=== PATIENT | female | born 1960 | race Caucasian/White ===

== ENCOUNTER 2024-01-15 20:49 | Emergency (ER) | payer OTHER, SELFPAY ==
[2024-01-15 20:51] VITALS: BP 155/102; PULSE 87; RESP 20; TEMP 36.7; O2SAT 99
[2024-01-15 21:11] VITALS: RESP 18
--- NOTE | 2024-01-15 21:18 | ED.GENADUL_ITS ---
Discharge Plan Disposition Patient Disposition: Home Condition: Stable Discharge Details Clinical Impression: Diplopia, Sinus headache, Allergic conjunctivitis Primary Care Provider: Unknown,Unknown ED Provider: Gisela Garcia Home Meds and New Rx's Prescriptions: No Action olopatadine 0.1 % drops 1 drp ophthalmic (eye) ONCE montelukast [Singulair] 10 mg tablet 10 mg PO DAILY oxycodone 7.5 mg PO TID fluticasone propion-salmeterol 230-21 mcg/actuation HFA aerosol inhaler 2 inh inhalation BID Airsupra 90-80 mcg/actuation HFA aerosol inhaler 2 inh inhalation DAILY PRN Discharge Instructions Instructions: Double Vision (DC), Headache, Adult ED, Seasonal Allergies ED Additional Instructions: Please keep your eye appointment as scheduled tomorrow. CT shows no evidence of continued infection in your sinuses or sinus abscess or fluid collection. I do suspect that this may be related to your seasonal allergies and recent sinus infection. CT shows no acute intracranial hemorrhage or fluid collection. Use the eyedrops as directed every 4 hours while awake. Return to the ER for any worsening headache, worsening double vision, weakness, dizziness, confusion, slurred speech, chest pain, or any concerns. Thank you for allowing us to care for you today. No evidence of urinary tract infection at this time. Referrals: Primary Care Provider [Outside] - 1 week Discharge Data Discharge Date/Time-TO BE ENTERED AT DEPARTURE: 01/15/24 23:42 HPI General Mode of arrival: ambulatory . Date/Time Provider Initiated Documentation: 01/15/24 21:02 . Limitations to Documentation: no limitations . Information obtained by: patient, family, RN notes reviewed and old records reviewed . HPI Narrative: 63-year-old female presents to the ER with a chief complaint of double vision that started intermittently prior to arrival. She is visiting from [facility], she reports that she recently was treated for sinusitis with 14 days of Au gmentin and finished her last dose this morning. She is continuing to have sinus pressure headache, discharge from her eyes, ear pain. She denies any chest pain abdominal pain nausea vomiting diarrhea she does endorse chills. She is hypertensive upon arrival has not taken blood pressure medication for the last 2 years. She does have a past medical history of gastric bypass surgery, prediabetes, POTS syndrome, severe seasonal allergies. She does have an appointment with local eye doctor tomorrow. She denies any weakness, numbness tingling her extremities no facial droop noted she is alert and oriented x 4, no significant focal neurodeficits noted on initial presentation. She does appear anxious with pressured speech. Related Data Home Medications Medication Instructions Recorded Confirmed albuterol 90 mcg-budesonide 80 2 inh inhalation DAILY PRN 01/15/24 01/15/24 mcg/actuation HFA aerosol inhaler (Airsupra) fluticasone propionate 230 2 inh inhalation BID 01/15/24 01/15/24 mcg-salmeterol 21 mcg/actuation HFA inhaler montelukast 10 mg tablet 10 mg PO DAILY 01/15/24 01/15/24 (Singulair) olopatadine 0.1 % eye drops 1 drp ophthalmic (eye) ONCE 01/15/24 01/15/24 oxycodone 7.5 mg PO TID 01/15/24 01/15/24 Allergies Allergy/AdvReac Type Severity Reaction Status Date / Time contrast dye Allergy Severe Anaphylaxis Uncoded 01/15/24 21:32 environmental Allergy Mild Other (See Uncoded 01/15/24 20:58 Comment) General Stated Complaint: GenMedical BHASKAR: 3 Review of Systems All systems reviewed & are unremarkable except as noted in HPI and below Constitutional Constitutional: Reports as per HPI, Denies frequent falls, Reports headache(s) and Denies weakness Eyes Eyes: Reports as per HPI, Reports blurry vision, Reports diplopia, Reports eye discharge, Reports irritation, Reports itchy eyes and Denies loss of vision ENT Ears, Nose, Mouth, and Throat: Reports as per HPI, Reports otalgia, Reports facial pain, Reports headache(s), Denies neck pain, Reports nose pain, Reports sinus pain and Reports sinus pressure Cardiovascular Cardiovascular: Denies chest pain, Denies syncope and Denies rapid heart rate Respiratory Respiratory: Denies chest congestion and Denies cough Gastrointestinal Gastrointestinal: Denies diarrhea, Denies nausea and Denies vomiting Musculoskeletal Musculoskeletal: Denies neck pain and Denies numbness Neurologic Neurologic: Denies confusion, Denies syncope, Denies frequent falls, Reports headache(s), Denies localized weakness, Denies loss of vision, Denies memory loss, Denies numbness, Denies other visual disturbances, Denies convulsions and Denies weakness Psychiatric Psychiatric: Denies confusion and Denies memory loss Allergic/Immunologic Allergic/Immunologic: Reports itchy eyes Exam Narrative Exam Narrative: Constitutional: Alert and oriented x3. Appears stated age. Normal body habitus. Appears anxious, pressured speech. Head: Normocephalic, no trauma. Eyes: Pupils PERRL, Red reflex noted, EOM's intact. Eyelids symmetrical without lesions, discharge, or swelling. ENT: Bilateral TM's WNL, External ear normal to inspection, no mastoid TTP, swelling, or erythema, Nasal turbinates boggy, no nasal discharge. Normal dentition, Posterior pharynx slightly erythemic, no exudate. Chest: RRR, Normal S1, S2, distal pulses intact. Resp: Lungs clear to auscultation bilaterally, no wheezes, rales, or rhonchi. Abdomen: Soft, non-distended, Normoactive bowel sounds all 4 quads. Musculoskeletal: Wide gait, Moves all 4 extremities without difficulty. Skin: No suspicious rashes or lesions. Capillary refill less than 2 sec. Neurologic: Cranial nerves II-XII intact. Alert and oriented x 3. Motor: No deficits noted. Sensory: Intact bilaterally all 4 extremities. No facial droop, process checker equal bilaterally. Hematologic/Lymphatic: No ecchymosis, no lymphadenopathy. Course Vital Signs Vital signs: Vital Signs Temperature 36.7 C 01/15/24 20:51 Pulse 87 01/15/24 20:51 Respiratory Rate 20 01/15/24 20:51 Blood Pressure 155/102 H 01/15/24 20:51 Pulse Oximetry 99 01/15/24 20:51 Temperature 36.7 C 01/15/24 20:51 Temperature Source Temporal Artery Scan 01/15/24 20:51 Pulse 87 01/15/24 20:51 Respiratory Rate 18 01/15/24 21:11 Respiratory Effort Normal, Non-Labored 01/15/24 21:11 Respiratory Depth Normal 01/15/24 21:11 Respiratory Pattern Normal 01/15/24 21:11 Blood Pressure 155/102 H 01/15/24 20:51 Blood Pressure Position Sitting 01/15/24 20:51 Pulse Oximetry 99 01/15/24 20:51 Oxygen Delivery Method Room Air 01/15/24 20:51 Oxygen Flow Rate 0 01/15/24 20:51 Pain Level 0 01/15/24 20:51 Medical Decision Making 63-year-old female presents to the ER with a chief complaint of double vision that started intermittently prior to arrival. She is visiting from [facility], she reports that she recently was treated for sinusitis with 14 days of Augmentin and finished her last dose this morning. She is continuing to have sinus pressure headache, discharge from her eyes, ear pain. She denies any chest pain abdominal pain nausea vomiting diarrhea she does endorse chills. She is hypertensive upon arrival has not taken blood pressure medication for the last 2 years. She does have a past medical history of gastric bypass surgery, prediabetes, POTS syndrome, severe seasonal allergies. She does have an appointment with local eye doctor tomorrow. She denies any weakness, numbness tingling her extremities no facial droop noted she is alert and oriented x 4, no significant focal neurodeficits noted on initial presentation. She does appear anxious with pressured speech. Informed by staff research scientist that patient is stating that she is allergic to IV contrast dye, CT with contrast cancel ordered CT sinuses without after speaking with pyrotechnic assembler she reports that this includes the head as well. Urinalysis ordered. Differential diagnosis includes but not limited to CVA, conjunctivitis, allergies, sinus abscess, cranial nerve palsy, dehydration, anxiety, CT within normal limits, please see official report. Will give polytrim eye drops for possible conjunctivitis related to recent sinusitis and allergies. Discussed results with patient and family verbalized understanding. Also discussed return instructions and to return 3 signs of CVA such as confusion weakness dizziness worsening headache, or concerns. This text was generated using [employer] dictation system, please disregard any oddities of phrase or misspellings. Imaging Data Radiologic Study: Imaging: CT Scan Radiologist's impression: Exam: CT Maxillofacial Without Contrast, Sinus Exam date and time: 01/15/2024 9:45 PM Age: 63 years old Clinical indication: Nasal congestion and sinusitis and visual changes or disturbances; Double vision (diplopra); Type not specified TECHNIQUE: Imaging protocol: CT Maxillofacial without contrast. Focus on the sinuses. COMPARISON: No relevant prior studies available. FINDINGS: Frontal sinuses: Normal. No air-fluid levels. Sphenoid sinuses: Normal. No air-fluid levels. Maxillary sinuses: Normal. No air-fluid levels. Ostiomeatal units are patent. Nasal cavity: Unremarkable. Orbital cavities: Orbits are normal. Globes are unremarkable. Bones: Unremarkable. Soft tissues: Unremarkable. IMPRESSION: Unremarkable sinuses. Thank you for allowing us to participate in the care of your patient. Dictated and Authenticated by: Willie Calvillo MD Requested addendum to include the head, please see official report. Quality:SDOH Health Related Social Needs: No Data to Display PFSH All Active Problems (Updated 01/15/24 @ 23:37 by Gisela Garcia NP) Allergic conjunctivitis (Acute) Sinus headache (Acute) Diplopia (Acute) Social History Smoking/Tobacco Use Status: Never Smoking risk assessment performed?: Yes Alcohol Intake: current Alcohol Intake frequency: holidays/special occasions only Substance use type: does not use Do you feel safe at home: Yes Do you feel safe in your relationship?: Yes
--- NOTE | 2024-01-15 21:30 | DI.CT_ITS ---
Exam(s) CT SINUS WO EXAM: CT SINUS WO CLINICAL HISTORY: Diplopia, Sinus pressure. Evaluate for sinusitis. TECHNIQUE: Imaging Protocol: Axial computed tomography images with coronal and sagittal reformatted images were created and reviewed. COMPARISON: No exams were available for comparison FINDINGS: Frontal sinuses: Normally aerated. Ethmoid air cells: Normally aerated. Maxillary sinuses: Normally aerated. Sphenoid sinus: Normally aerated. Ostiomeatal complexes: Patent. Nasal cavity: Septum is midline. Visualized regional soft tissues: No acute findings. Orbits: Unremarkable. Bones: Unremarkable. Mastoid Air Cells: Normally aerated. Visualized portions of the brain: Unremarkable as visualized. IMPRESSION: No evidence of sinus disease. RADIATION DOSE DELIVERED: 129.46mGy.cm Total DLP DATA REPOSITORY: All CT scans at this facility are submitted to the National Radiology Data Registry (NRDR) Dose Index Registry (DIR) with the [employer] (A[employer]). RADIATION OPTIMIZATION: All CT scans at this facility use at least one of these dose optimization te chniques: automated exposure control; mA and/or kV adjustment per patient size (includes targeted exa ms where dose is matched to clinical indication); or iterative reconstruction.
[2024-01-15 22:16] LABS: Bilirubin Negative (Negative); Blood Negative (Negative); Clarity Clear (Clear); Glucose Negative (Negative); Ketones Negative (Negative); Leukocyte Esterase Small (Negative); Nitrite Negative (Negative); Specific Gravity 1.015 (1.005-1.025); Urobilinogen 0.2 mg/dL (Up to 0.2)
[2024-01-15 22:21] LABS: RBC Negative HPF (0-2)
[2024-01-15 22:22] LABS: Bacteria Rare HPF (Negative); C & S Indicated? No; Casts Negative LPF (Negative); Crystals Negative HPF (Negative); Epithelial Cells Rare HPF (Negative); Mucus Negative (Negative)
[2024-01-15 22:46] VITALS: BP 140/76; PULSE 76; RESP 16; O2SAT 98
--- NOTE | 2024-01-15 23:18 | DI.VRAD_ITS ---
PROCEDURE INFORMATION: Exam: CT Head Without Contrast Exam date and time: 01/15/2024 9:45 PM Age: 63 years old Clinical indication: Nasal congestion and sinusitis and visual changes or disturbances; Double vision (diplopra); Type not specified TECHNIQUE: Imaging protocol: Computed tomography of the head without contrast. COMPARISON: No relevant prior studies available. FINDINGS: Brain: No intracranial hemorrhage or extra-axial fluid collection. No evidence of mass effect or midline shift. Diego-white matter differentiation is intact. Cerebral ventricles: No ventriculomegaly. Mastoid air cells: Unremarkable. Bones: Unremarkable. No acute fracture. Soft tissues: Scalp soft tissues are unremarkable. IMPRESSION: No acute intracranial pathology. Dictated and Authenticated by: Willie Calvillo MD. Ordering:SEE Higgins MD
[2024-01-15] MEDS: Polymyxin B/Trimethoprim Ophth Soln 10 ML BTL OU (23:36)
[2024-01-15 23:39] VITALS: BP 132/69; PULSE 72; RESP 16; O2SAT 99
== END 2024-01-15 23:42 | disposition home or self-care (01) ==
PROVIDERS: Emergency Provider Registered Nurse Emergency
DX: R51.9 Headache, unspecified (principal); H10.13 Acute atopic conjunctivitis, bilateral; H53.2 Diplopia; Z87.09 Personal history of other diseases of the respiratory system
CPT/HCPCS: 80053; 99284; 70486; 81003; 81015; 85025; 99283